=== PATIENT | male | born 1975 | race Two or more races ===

== ENCOUNTER 2022-07-03 23:05 | Emergency (ER) | payer OTHER ==
[~2022-07-03] VITALS: Ht 188 cm; Wt 99.8 kg
[2022-07-03] MEDS ORDERED: ATORVASTATIN CA40 MG PO (23:44)
[2022-07-03] MEDS ORDERED: METFORMIN HCL750 MG PO (23:44)
[2022-07-04] MEDS ORDERED: DOLOGEN CAPLET1 EACH PO (02:24)
== END 2022-07-04 03:13 | disposition home or self-care (01) ==
LOC: ER 23:05
DX: B34.8 Other viral infections of unspecified site (principal); Z20.828 Contact with and (suspected) exposure to other viral communicable diseases

== ENCOUNTER 2022-07-07 17:13 | Inpatient (IN) | payer OTHER ==
[~2022-07-07] VITALS: Ht 188 cm; Wt 98.9 kg
[~2022-07-07 17:13] MED LIST: ATORVASTATIN CA40 MG PO; DOLOGEN CAPLET1 EACH PO; METFORMIN HCL750 MG PO
--- NOTE | 2022-07-07 17:42 | NUR ---
PACIENTE ALERTA Y ORIENTADO POR PAULINE. REFIERE DIAGNOSTICADO CON DENGUE EL SABADO CON INSTRUCCIONES DE REGRESAR SI LAS PLAQUETAS BAJABAN MENOS DE 60MIL RESULTADO DE HOY CON PLAQUETAS EN 32. REFIERE TENER DEBILIDAD Y DOLOR DE ZENA.
--- NOTE | 2022-07-07 18:53 | NUR ---
SE ORIENTA AL PACIENTE SOBRE EL TX. SE EXTRAEN MUESTRAS DE GERALDO BAJO MEDIDAS ASEPTICAS SE ROTULAN Y ENVIAN AL LABORATORIO SE ROTULAN Y ENVIAN AL LABORATORIO. SE CANALIZA Y ADMINISTRA MEDICAMENTO EFRA ORDEN MEDICA.
--- NOTE | 2022-07-07 19:32 | NUR ---
SE ORIENTA SOBR EL TX. SE JOSTIN MUESTRAS DE GERALDO PARA TUBOS PILOTOS. SE REQUIZA 10 UNIDADES DE PLAQUETAS. PTE FIRMA CONSENTIMIENTO PARA TRANSFUNDIR. SE REALIZA LLAMADA A [facility] Y SE NOTIFICA A Mariah BANERJEE.
== END 2022-07-09 15:14 | disposition home or self-care (01) | DRG 866 ==
LOC: ER 17:13 → SEC-K 21:13 → SURH 07-08 20:48
PROVIDERS: ADMIT Internal Medicine; ATTEND Internal Medicine
PROC: 30233R1 Transfusion of Nonautologous Platelets into Peripheral Vein, Percutaneous Approach (ICD-10-PCS; principal; 2022-07-08)
DX: A91 Dengue hemorrhagic fever (principal); E86.0 Dehydration; I10 Essential (primary) hypertension; E78.5 Hyperlipidemia, unspecified; R23.3 Spontaneous ecchymoses; Z20.822 Contact with and (suspected) exposure to COVID-19

== ENCOUNTER 2022-07-10 17:25 | Emergency (ER) | payer OTHER ==
[~2022-07-10] VITALS: Ht 188 cm; Wt 99.8 kg
== END 2022-07-10 22:29 | disposition home or self-care (01) ==
LOC: ER 17:25
DX: K62.5 Hemorrhage of anus and rectum (principal); R74.01 Elevation of levels of liver transaminase levels; A91 Dengue hemorrhagic fever; D69.59 Other secondary thrombocytopenia; Z83.3 Family history of diabetes mellitus; Z82.49 Family history of ischemic heart disease and other diseases of the circulatory system